=== PATIENT | male | born 1980 | race Caucasian/White ===

== ENCOUNTER 2016-08-12 01:38 | Emergency (ER) | payer OTHER ==
[2016-08-12 01:55] VITALS: BP 132/70; PULSE 66; RESP 20; TEMP 97.4
--- NOTE | 2016-08-12 01:57 | ED ---
General Adult HPI - General Chief complaint: Wound/Laceration Stated complaint: right thumb lac Time Seen by Provider: 08/12/16 01:49 Source: patient, RN notes reviewed Mode of arrival: ambulatory Limitations: no limitations - History of Present Illness Initial comments: Physical 35-year-old male presents with a scratch to the right thumb that happened about 6 hours ago. Patient states he scratched the thumb on the button of his pants. Patient is up-to-date on his tetanus shot. Patient denies any numbness/tingling or weakness. Patient is not on any blood thinners. Patient denies any recent fever, chills, shortness breath, chest pain , abdominal pain, nausea/vomiting/diarrhea, back pain, hematuria, headache, or visual changes, or any other complaints. - Related Data Home Medications Medication Instructions Recorded Confirmed ALPRAZolam [Xanax] 0.25 mg PO BID PRN 08/12/16 08/12/16 Ranitidine HCl [Zantac] 150 mg PO HS 08/12/16 08/12/16 Allergies Allergy/AdvReac Type Severity Reaction Status Date / Time No Known Allergies Allergy Verified 08/12/16 01:45 Review of Systems ROS Statement: Those systems with pertinent positive or pertinent negative responses have been documented in the HPI. ROS Other: All systems not noted in ROS Statement are negative. Past Medical History Past Medical History: No Reported History, GERD/Reflux, Sleep Apnea/CPAP/BIPAP Additional Past Medical History / Comment(s): anxiety, depression, PTSD, IBS History of Any Multi-Drug Resistant Organisms: None Reported Past Surgical History: Hernia Repair Additional Past Surgical History / Comment(s): ENT, sinus Past Psychological History: Anxiety, Depression, PTSD Smoking Status: Former smoker Past Alcohol Use History: Occasional Past Drug Use History: None Reported General Exam - General Exam Comments Initial Comments: General: The patient is awake and alert, in no distress, and does not appear acutely ill. Neck: The neck is supple, there is no tenderness or JVD. Cardiovascular: There is a regular rate and rhythm. No murmur, rub or gallop is appreciated. Respiratory: Lungs are clear to auscultation, respirations are non-labored, breath sounds are equal. No wheezes, stridor, rales, or rhonchi. Musculoskeletal: Full range of motion, strength 5/5 and Sensation intact. Pulses 2+ bilaterally. Capillary refill is normal at less than 2 seconds. Neurological: A&O x 3. CN II-XII intact, There are no obvious motor or sensory deficits. Coordination appears grossly intact. Speech is normal. Skin: There is an approximately 1 cm scratch to the lateral aspect of the patient's right thumb. Skin is warm and dry and no rashes or lesions are noted. Psychiatric: Normal mood and affect. Limitations: no limitations Course Vital Signs 08/12/16 01:40 Temperature 97.4 F L Pulse Rate 66 Respiratory 20 Rate Blood Pressure 132/70 O2 Sat by Pulse 99 Oximetry Medical Decision Making - Medical Decision Making This is a scratch to the right thumb 6hours. On physical exam There is an approximately 1 cm scratch to the lateral aspect of the patient's right thumb. Patient is up-to-date on his tetanus shot. I cleaned the wound with normal saline. Steri-Strips were applied with bacitracin. I discussed signs of infection. Discussed wound care. I discussed Tylenol and Motrin as needed for any pain. I discussed return parameters.Discussed that patient should follow up with PCP in one to 2 days or return to the [facility] for any worsening symptoms or for any further concerns. Patient was receptive to this plan and patient will be discharged home. Disposition Clinical Impression: Abrasion hand Disposition: HOME SELF-CARE Condition: Good Instructions: Abrasion (ED) Additional Instructions: Please keep area clean and dry. May use Neosporin to the area. Please keep area covered with a Band-Aid. Steri-Strips will fall off on their own. Watch for signs of infection such as increased redness, warmth or tenderness or purulent drainage. Please use Tylenol or Motrin as needed for pain. Please follow-up with family doctor in the next 2 days of symptoms have not improved. Please return to emergency room if the symptoms increase or worsen or for any other concerns. Referrals: Nonstaff,Physician [Primary Care Provider] - 1-2 days Triston Sawyer MD [REFERRING] - 1-2 days Time of Disposition: 02:06
== END 2016-08-12 02:10 | disposition home or self-care (01) ==
LOC: EC 01:38
DX: S60.311A Abrasion of right thumb, initial encounter (principal); W22.09XA Striking against other stationary object, initial encounter; Z87.891 Personal history of nicotine dependence; K21.9 Gastro-esophageal reflux disease without esophagitis; Z79.899 Other long term (current) drug therapy
CPT/HCPCS: 99282

== ENCOUNTER 2019-01-16 18:52 | Emergency (ER) | payer OTHER, MEDICARE ==
[2019-01-16 19:20] VITALS: RESP 17
[2019-01-16] MEDS ORDERED: LIDOCAINE 1% INJ 10MG/ML (20 ML MDV) SQ ONE (19:27)
[2019-01-16] MEDS ORDERED: DIPH,PERTUS(ACELL)TETVAC-LF 0.5 ML VIAL IM ONE (19:28)
--- NOTE | 2019-01-16 19:30 | ED ---
General Adult HPI - General Chief complaint: Wound/Laceration Stated complaint: Ankle Injury Time Seen by Provider: 01/16/19 19:23 Source: patient, family, EMS, RN notes reviewed Mode of arrival: EMS Limitations: no limitations - History of Present Illness Initial comments: Patient is a pleasant 38-year-old male presenting to the emergency Department wi th laceration. Patient dropped a piece of glass onto his right ankle. Patient did have a large amount of bleeding that was somewhat squirting. This stopped and then STARTED again with movement. This has now stopped again. Patient denies any other area of injury. Unclear last tetanus immunization. Discomfort is minimal. No weakness. Patient states the piece of glass was not broken. Patient does not have concern for foreign body. - Related Data Home Medications Medication Instructions Recorded Confirmed ALPRAZolam [Xanax] 0.25 mg PO BID PRN 08/12/16 08/12/16 Ranitidine HCl [Zantac] 150 mg PO HS 08/12/16 08/12/16 Allergies Allergy/AdvReac Type Severity Reaction Status Date / Time No Known Allergies Allergy Verified 01/16/19 19:33 Review of Systems ROS Statement: Those systems with pertinent positive or pertinent negative responses have been documented in the HPI. ROS Other: All systems not noted in ROS Statement are negative. Past Medical History Past Medical History: No Reported History, GERD/Reflux, Sleep Apnea/CPAP/BIPAP Additional Past Medical History / Comment(s): anxiety, depression, PTSD, IBS History of Any Multi-Drug Resistant Organisms: None Reported Past Surgical History: Hernia Repair Additional Past Surgical History / Comment(s): ENT, sinus Past Psychological History: Anxiety, Depression, PTSD Smoking Status: Current every day smoker Past Alcohol Use History: Occasional Past Drug Use History: None Reported General Exam Limitations: no limitations General appearance: alert, in no apparent distress Head exam: Present: atraumatic Eye exam: Present: normal appearance Neck exam: Present: normal inspection. Absent: tenderness Respiratory exam: Present: normal lung sounds bilaterally Cardiovascular Exam: Present: regular rate, normal rhythm Expanded Peripheral pulses: 2+: Posterior Tibialis (R), Posterior Tibialis (L), Dorsalis Pedis (R), Dorsalis Pedis (L) GI/Abdominal exam: Present: soft. Absent: tenderness Extremities exam: Present: normal inspection, full ROM. Absent: tenderness Neurological exam: Present: alert Psychiatric exam: Present: normal affect, normal mood Skin exam: Present: other (Right anterior ankle near the medial malleolus with laceration. No active bleeding. Distally extremity is neurovascularly intact.) Course Vital Signs 01/16/19 01/16/19 18:53 19:19 Temperature 98.7 F Pulse Rate 93 77 Respiratory 16 17 Rate Blood Pressure 136/95 99/77 O2 Sat by Pulse 96 98 Oximetry Procedures - Laceration Laceration #1 Consent Obtained: verbal consent Indication: laceration Site: lower extremity Size (cm): 1 Description: linear Depth: simple, single layer Anesthetic Used: lidocaine 1% Anesthesia Technique: local infiltration Amount (mls): 2 Pre-repair: wound explored Type of Sutures: nylon Size of Sutures: 5-0 Number of Sutures: 2 Technique: simple, interrupted Patient Tolerated Procedure: well, no complications Disposition Clinical Impression: Laceration of ankle Disposition: HOME SELF-CARE Condition: Stable Instructions (If sedation given, give patient instructions): Laceration (ED) Additional Instructions: Please follow-up with primary care physician in the next couple days for recheck. Twice daily wash wound with soap and water, apply antibiotic ointment, and bandage. Suture removal in 9-10 days. Return for bleeding, redness, weakness, worsening symptoms or other concerns. Is patient prescribed a controlled substance at d/c from ED?: No Referrals: Jakob Caballero DO [Doctor of Osteopathic Medicine] - 1-2 days Time of Disposition: 19:51
[2019-01-16 20:23] VITALS: BP 120/84; PULSE 63; TEMP 98.4
== END 2019-01-16 20:26 | disposition home or self-care (01) ==
LOC: EC 18:52
DX: S91.011A Laceration without foreign body, right ankle, initial encounter (principal); Z23 Encounter for immunization; F41.9 Anxiety disorder, unspecified; F32.9 Major depressive disorder, single episode, unspecified; K21.9 Gastro-esophageal reflux disease without esophagitis; G47.30 Sleep apnea, unspecified; F17.200 Nicotine dependence, unspecified, uncomplicated; Z79.899 Other long term (current) drug therapy
CPT/HCPCS: 90715; 99283; 12001; 90471; J2001